=== PATIENT | female | born 1960 | race Caucasian/White ===

== ENCOUNTER 2018-01-03 12:47 | Day surgery (SDC) | payer OTHER ==
[2018-01-03] MEDS ORDERED: fentaNYL 100 MCG/2 ML INJ IVP PRN (12:59)
[2018-01-03] MEDS ORDERED: FLUMAZENIL 0.5 MG/5 ML MDV IVP PRN (12:59)
[2018-01-03] MEDS ORDERED: MIDAZOLAM 2 MG/2 ML VIAL IVP PRN (12:59)
[2018-01-03] MEDS ORDERED: NALOXONE HCL 0.4 MG/ML INJ IVP PRN (12:59)
[2018-01-03] MEDS ORDERED: NS 1,000 ML IV SCH (13:00)
[2018-01-03] MEDS ORDERED: TRIAMCINOLONE ACETONIDE 200 MG/5 ML MDV IM ONE (13:24)
[2018-01-03] MEDS ORDERED: LIDOCAINE 1% 300 MG/30 ML SDV ONE (13:24)
[2018-01-03] MEDS ORDERED: IOPAMIDOL (ISOVUE-M 300) 15 ML VIAL ONE (13:25)
--- NOTE | 2018-01-03 13:43 | PDPROPOC ---
Sedation Plan of Care Sedation Plan of Care: vital signs stable, mental status noted, patient educated of risks, benefits, alternatives, patient can tolerate sedation ASA Classification: ASA 2 Planned drugs: fentanyl, midazolam Mallampati Score: Class 2 Mallampati Reference Image: Patient passed 3-3-2 rule?: Yes
--- NOTE | 2018-01-03 13:43 | PDRADPRE ---
Radiology History & Physical Indication for procedure: back pain (LBP/radiculopathy L5/S1 facet injections) Home medications: [place] Thyroid 60 MG (*) 60 mg PO DAILY 01/02/18 [Last Taken 01/02/18] CLONAZEPAM 0.25 mg PO DAILY 01/02/18 [Last Taken 01/03/18] Dhea 2.5 mg PO DAILY 01/02/18 [Last Taken 01/02/18] Estraderm 0.05 MG 0.05 mg TD 01/02/18 [Last Taken 01/01/18] Gabapentin 50 mg PO DAILY 01/02/18 [Last Taken 01/02/18] Methocarbamol 37.5 mg PO DAILY 01/02/18 [Last Taken 01/02/18] Progesterone 01/02/18 [Last Taken 01/02/18] Testosterone 01/02/18 [Last Taken 01/02/18] traMADol 12.5 mg PO DAILY 01/02/18 [Last Taken 01/03/18] Allergies/Adverse Reactions: seasonal Allergy (Uncoded 01/02/18 17:48) Mental status: A&Ox3 Heart exam: regular rate and rhythm Lungs exam: clear to auscultation Mallampati Score: Class 2
[2018-01-03] MEDS ORDERED: DEPO METHYLPREDNISOLONE 80 MG/ML SDV ONE (14:06)
[2018-01-03] MEDS ORDERED: ONDANSETRON 4 MG/2 ML VIAL IVP PRN (14:58)
--- NOTE | 2018-01-03 15:00 | PDRADPN ---
Radiology Procedure Note Date of Procedure: 01/03/18 Radiologist: Jaylon Spence Anesthesia: IV Sedation Pre-op Diagnosis: LBP/Radiculopathy Post-op Diagnosis: LBP/Radiculopathy Indication: LBP/Radiculopathy Procedure: L5/S1 Facet inj Finding(s): Depomedrol 80 mg L5/S1 Inf/Abcess present in the surg proc area at time of surgery?: No
[2018-01-03 15:32] VITALS: BP 104/66
== END 2018-01-03 15:52 | disposition home or self-care (01) ==
LOC: FIMAGING 12:47
PROVIDERS: ATTEND Physician Assistant
PROC: 3E0U33Z Introduction of Anti-inflammatory into Joints, Percutaneous Approach (ICD-10-PCS; 2018-01-03)
PROC: BR16YZZ Fluoroscopy of Lumbar Facet Joint(s) using Other Contrast (ICD-10-PCS; 2018-01-03)
PROC: 3E0U3BZ Introduction of Anesthetic Agent into Joints, Percutaneous Approach (ICD-10-PCS; principal; 2018-01-03 14:50)
DX: M47.26 Other spondylosis with radiculopathy, lumbar region (principal)
CPT/HCPCS: J1040; J2250; J2310; J3010; J3301; Q9967